=== PATIENT | male | born 1955 | race Caucasian/White ===

== ENCOUNTER 2019-03-24 21:39 | Emergency (ER) | payer OTHER ==
[~2019-03-24] VITALS: Ht 185.4 cm; Wt 69.4 kg
--- NOTE | 2019-03-24 21:53 | NUR ---
PT STATES THAT HE HAS BEEN VOMITING X 1/5 DAYS AND CAN'T KEEP FLUIDS DOWN. MONITORS APPLIED, SIDERAILS UP X2, CALL LIGHT WITHIN REACH. PA AT BEDSIDE FOR EVAL
[2019-03-24] MEDS ORDERED: ONDANSETRON 2MG/ML, 2ML ONE (22:07)
[2019-03-24] MEDS ORDERED: LORazepam 2 MG/ML, 1ML ONE (22:07)
--- NOTE | 2019-03-24 22:24 | NUR ---
IV SITE STARTED, IV FLUIDS INFUSING, PT MEDICATED PER MAR. PROVIDED PT WITH URINE CUP FOR SAMPLE, PT STATED UNABLE TO VOID AT THIS TIME
[2019-03-24 22:26] LABS: BASOPHILS # (AUTO) 0.04 x10^3/uL (0-0.1); BASOPHILS % (AUTO) 0 % (0-1); EOSINOPHILS % (AUTO) 0 % (1-7); LYMPHOCYTES # (AUTO) 1.13 x10^3/uL (1-3.4); LYMPHOCYTES % (AUTO) 7 % (22-44); MD NO; MEAN CORPUSCULAR HEMOGLOBIN 30.9 pg (27.5-34.5); MEAN CORPUSCULAR VOLUME 96.7 fL (81-97); MONOCYTES # (AUTO) 1.11 x10^3/uL (0.2-0.8); MONOCYTES % (AUTO) 7 % (2-9); NEUTROPHILS # (AUTO) 13.52 x10^3/uL (1.8-6.8); NEUTROPHILS % (AUTO) 86 % (42-75); PLATELET COUNT 315 x10^3/uL (130-400); RED BLOOD COUNT 4.99 x10^6/uL (4.38-5.82); RED CELL DISTRIBUTION WIDTH 14.4 % (9.4-14.8)
[2019-03-24] MEDS ORDERED: SODIUM CHLORIDE 0.9% 1,000ML IVBOLUS ONE ×2 (22:30→23:30)
[2019-03-24] MEDS ORDERED: ONDANSETRON 2MG/ML, 2ML IVPush ONE (22:30)
[2019-03-24] MEDS ORDERED: LORazepam 2 MG/ML, 1ML IVPush ONE (22:30)
[2019-03-24 22:38] LABS: ALBUMIN 4.3 g/dL (3.4-5.0); ANION GAP 9 mmol/L (5-15); CALCIUM 9.5 mg/dL (8.5-10.1); CHLORIDE 113 mmol/L (98-107)
[2019-03-24 22:44] LABS: ALANINE AMINOTRANSFERASE 35 U/L (12-78); ALKALINE PHOSPHATASE 59 U/L (45-117); BILIRUBIN,TOTAL 0.7 mg/dL (0.2-1.0); CREATININE 1.01 mg/dL (0.7-1.3); TOTAL PROTEIN 7.7 g/dL (6.4-8.2); TROPONIN I 0.016 ng/mL (0.000-0.045)
--- NOTE | 2019-03-24 23:02 | NUR ---
URINE SAMPLE TAKEN TO LAB
[2019-03-24 23:15] LABS: MICROSCOPIC AUTO
[2019-03-24 23:23] LABS: CULTURE INDICATED? NO
[2019-03-24 23:26] LABS: AMPHETAMINE SCREEN, URINE Negative (Negative); BARBITURATE SCREEN, URINE Negative (Negative); BENZODIAZEPINE SCREEN, URINE Negative (Negative); CANNABINOID SCREEN, URINE Positive (Negative); COCAINE SCREEN, URINE Negative (Negative); METHADONE SCREEN, URINE Negative (Negative); OPIATE SCREEN, URINE Negative (Negative)
--- NOTE | 2019-03-24 23:50 | NUR ---
provided pt with po fluids
[2019-03-25 00:04] VITALS: BP 134/84
--- NOTE | 2019-03-25 00:04 | NUR ---
PT TOLERATING PO FLUIDS, DENIES NAUSEA. PT RESTING CALMLY, MONITORS IN PLACE, CALL LIGHT WITHIN REACH
== END 2019-03-25 00:36 | disposition home or self-care (01) ==
LOC: ED 22:41
DX: R11.2 Nausea with vomiting, unspecified (principal)
CPT/HCPCS: 36415; 71045; 80053; 80307; 81001; 83690; 84443; 84484; 85025; 93005; 96361; 96374; 96375; 99284; J2060; J2405; J7030